=== PATIENT | male | born 1950 | race Caucasian/White ===

== ENCOUNTER → 2023-03-23 | Day surgery (SDC) | payer MEDICARE ==
[~2023-03-23] MED LIST: BENADRYL25 M1 PO; FENTANYL CITRATE/PF 100MCG/2 ML INJ ONE; FLOMAX0.4 MG PO; FUROSEMIDE40 MG PO; GABAPENTIN300 MG PO; LACTATED RINGER'S 1,000 ML ONE; LIPITOR10 MG PO; METOPROLOL SUCC25 MG PO; MIDAZOLAM HCL 2 MG/2 ML VIAL ONE; MIDODRINE HCL5 MG PO; OMEPRAZOLE40 MG PO; OR PHACO EYE KIT ONE; PLAVIX75 MG PO; PREOP PHACO EYE KIT ONE; TYLENOL325 MG PO; VIT C PO; VIT D3 PO; ZINC PO
[2023-03-23 11:04] VITALS: TEMP 97
[2023-03-23 11:20] VITALS: BP 139/76; PULSE 59; RESP 17; O2SAT 99
== END | disposition home or self-care (01) ==
LOC: OR 07:50
PROVIDERS: ATTEND Ophthalmology
DX: H25.11 Age-related nuclear cataract, right eye (principal); I25.10 Atherosclerotic heart disease of native coronary artery without angina pectoris; I50.9 Heart failure, unspecified; I25.2 Old myocardial infarction; F17.200 Nicotine dependence, unspecified, uncomplicated; Z79.02 Long term (current) use of antithrombotics/antiplatelets; Z79.899 Other long term (current) drug therapy; Z87.01 Personal history of pneumonia (recurrent)
CPT/HCPCS: 66984; J2250; J3010; J7121; V2632